=== PATIENT | male | born 1970 | race Two or more races ===

== ENCOUNTER 2024-11-23 00:49 | Inpatient (IN) | payer OTHER ==
[~2024-11-23] VITALS: Ht 182.9 cm; Wt 81.8 kg
--- NOTE | 2024-11-23 00:59 | ECG ---
[facility] Test Date: 2024-11-23 Test Time: 00:48:04 Pat Name: ALPHONSO BARROS Department: Room: [facility]- Gender: M Choir Singer: QUYEN : 1970 Requested By: EMERGENCY EMERGENCY Order Number: [id number] Reading MD: Crhistopher Torres Measurements Intervals Dickinson Rate: 58 P: 92 MO: 185 QRS: 85 QRSD: 87 T: 63 QT: 430 QTc: 423 Interpretive Statements Sinus rhythm Consider left atrial enlargement RSR' in V1 or V2, probably normal variant Left ventricular hypertrophy Borderline T abnormalities, anterior leads ST elev, probable normal early repol pattern Electronically Signed On 11-25-2024 18:49:46 PDT by Christopher Torers Please click the below link to view image of tracing.
[2024-11-23 01:08] VITALS: PULSE 69; RESP 18; O2SAT 97
[2024-11-23] MEDS: SODIUM CHLORIDE 0.9% 1,000 ML IV ONE ×2 (01:15)
[2024-11-23] MEDS: KETOROLAC TROMETH 30 MG/ML 1ML VIAL IV ONE (01:24)
--- NOTE | 2024-11-23 01:25 | ED.PDOC ---
Altered Mental Status HPI Comments 54-year-old male who came to ER via EMS for altered level of consciousness. Per patient's patient went to bed around 11:00 p.m.. He was feeling at his baseline prior to that. Before bed he took Benadryl, tramadol and Seroquel. Just prior to arrival Patient then collapsed at the bathroom floor and started h yperventilating, and became short of breath with nausea and vomiting. She reports patient having seizure-like activity for a proximally 3-4 minutes. He then became unresponsive to verbal stimuli as paramedics were called He was given 5 mg of Narcan by EMS. . Noted to be hypotensive on scene SBP 80 with a blood sugar of 92. REVIEW OF SYSTEMS: General: No fever, no chills, or fatigue HEENT: No sore throat, no earache, no congestion, no neck pain. Cardiac: No chest pain. No palpitations. Lungs: No shortness of breath, no cough. GI: No nausea, no vomiting, no diarrhea, no constipation, no abdominal pain : No dysuria, frequency, or urgency. No hematuria. Musculoskeletal: No joint pain , no joint swelling, no extremity edema. Skin: No rash, no itching. Neuro: No headache, no dizziness, no weakness (+) altered mental status EXAM: General: Awake, lethargic. No acute distress. Skin: Skin in warm, dry and intact. Appropriate color for ethnicity. HEENT: The head is normocephalic and atraumatic. Conjunctivae are clear without exudates or hemorrhage. Sclera is non-icteric. EOM are intact. No signs of nystagmus. Eyelids are normal in appearance without swelling or lesions. Oral mucosa is pink and moist Neck: The neck is supple with normal range of motion. No JVD. Cardiac: Heart rate and rhythm are normal. No murmurs, gallops, or rubs are auscultated. Respiratory: No signs of respiratory distress. Lung sounds are clear in all lobes bilaterally without rales, rhonchi, or wheezes. Abdominal: Abdomen is soft, non-tender without distention. Bowel sounds are present and normoactive in all four quadrants. Extremities: Upper and lower extremities are atraumatic in appearance without deformity or edema. Neurological: The patient is awake, oriented to person, place, and time with normal speech. Speech is clear. There is no facial asymmetry. No upper or lower extremity drift. 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 Allergies: Coded Allergies: Sulfa Antibiotics (Verified Allergy, Unknown, 11/23/24) Information Source: Emergency Med Personnel, Spouse Mode of Arrival: EMS Severity: Unable to Care for Self, Unresponsive Timing: Hours Duration: Since onset Quality: Decreased Alertness, Change in Behavior, Confusion Past Medical History PAST MEDICAL HISTORY: High Lipids, HTN Surgical History: Pt Confused Family History Family History: Pt Confused Social History Smoker: Pt Confused Alcohol: Pt Confused Drugs: Pt Confused Lives In: Home EKG EKG : Pulse Rate (adult): 58 Cardiac Rhythm: NSR Hypertrophy: LAE, LVH Comments No STEMI Was a procedure done? Was a procedure done?: No Differential Diagnosis (ALOC) Differential Diagnosis: Dehydration, Hypoglycemia, Encephalopathy, Seizure, CVA, Drug Overdose, Other (Differential diagnosis considered includes but not limited to intracranial hemorrhage, stroke, head injury, seizure, metabolic disturbance, electrolyte imbalance, infection, substance intoxication, psy chiatric cause, other systemic illness, other) X-Ray, Labs, Meds, VS Vital Signs Date Time Temp Pulse Resp B/P (MAP) Pulse Ox O2 Delivery O2 Flow Rate FiO2 11/23/24 01:26 58 11/23/24 01:08 69 18 97 Nasal Cannula* 2 28 11/23/24 01:08 98.1 64 18 102/78 (86) 97 98.1 11/23/24 00:51 56 11/23/24 00:49 98.3 57 14 100/64 95 98.3 Lab Test 11/23/24 02:01 11/23/24 01:30 Range/Units Urine Color Yellow Yellow Urine Clarity Clear Clear Urine pH 5.5 5.0-9.0 Urine Specific [place] 1.020 1.001-1.035 Urine Protein Negative Negative Urine Ketones Negative Negative Urine Blood Negative Negative /uL Urine Nitrite Negative Negative Urine Bilirubin Negative Negative Urine Urobilinogen Normal Negative mg/dL Urine Leukocyte Esterase Negative Negative /uL Urine RBC 3 0 - 3 /hpf Urine Microscopic WBC 2 0-3 /HPF Urine Squamous Epithelial Cells Few <5 /hpf Urine Bacteria None seen None Seen /hpf Urine Mucus Few None Seen Urine Glucose Normal Normal mg/dL Urine Opiates Screen Pending Urine Fentanyl Screen Pending Urine Barbiturates Screen Pending Urine Phencyclidine Screen Pending Urine Amphetamines Screen Pending Urine Benzodiazepines Screen Pending Urine Cocaine Screen Pending Urine Cannabinoids Screen Pending White Blood Count 5.6 4.4-10.8 10^3/uL Red Blood Count 4.44 L 4.5-5.90 10^6/uL Hemoglobin 14.2 13.5-17.5 g/dL Hematocrit 40.9 L 41.0-53.0 % Mean Corpuscular Volume 92.2 80.0-100.0 fL Mean Corpuscular Hemoglobin 32.1 H 28.0-32.0 pg Mean Corpuscular Hemoglobin Concent 34.9 32.0-36.0 g/dL Red Cell Distribution Width 13.9 11.8-14.3 % Platelet Count 172 140-450 10^3/uL Mean Platelet Volume 8.3 6.9-10.8 fL Neutrophils (%) (Auto) 55.6 37.0-80.0 % Lymphocytes (%) (Auto) 31.4 10.0-50.0 % Monocytes (%) (Auto) 8.6 0.0-12.0 % Eosinophils (%) (Auto) 3.5 0.0-7.0 % Basophils (%) (Auto) 0.9 0.0-2.0 % Neutrophils # (Auto) 3.1 1.6-8.6 10 ^3/uL Lymphocytes # (Auto) 1.8 0.4-5.4 10 ^3/uL Monocytes # (Auto) 0.5 0-1.3 10 ^3/uL Eosinophils # (Auto) 0.2 0-0.8 10 ^3/uL Basophils # (Auto) 0.1 0-0.2 10 ^3/uL Nucleated Red Blood Cells 0.1 % Sodium Level 143 136-145 mmol/L Potassium Level 3.4 L 3.5-5.1 mmol/L Chloride Level 109 H 98-107 mmol/L Carbon Dioxide Level 26 20-31 mmol/L Anion Gap 8 5-15 Blood Urea Nitrogen 10 9-23 mg/dL Creatinine 1.17 0.700-1.30 mg/dL Glomerular Filtration Rate Calc 75 >90 mL/min BUN/Creatinine Ratio 8.5 L 10.0-20.0 Serum Glucose 83 74-106 mg/dL Lactic Acid Level Pending Calcium Level 8.6 L 8.7-10.4 mg/dL Magnesium Level 2.1 1.6-2.6 mg/dL Total Bilirubin 0.5 0.2-1.0 mg/dL Aspartate Amino Transferase (AST) 18 13-40 U/L Alanine Aminotransferase (ALT) 14 7-40 U/L Alkaline Phosphatase 57 46-116 U/L Troponin I High Sensitivity < 3 L </=54 ng/L B-Type Natriuretic Peptide 2.27 0-100 pg/mL Total Protein 6.9 5.7-8.2 g/dL Albumin 4.0 3.2-4.8 g/dL Lipase Pending Thyroid Stimulating Hormone (TSH) 4.78 0.55-4.78 uIU/mL Plasma/Serum Blood Alcohol < 3.0 <10 mg/dL Current Medications Medications (Trade) Dose Ordered Sig/Dilcia Route Start Time Stop Time Status Last Admin Sodium Chloride 1,000 ml @ 1,000 mls/hr Q1H ONCE IV 11/23/24 01:15 11/23/24 02:14 DC 11/23/24 01:15 Ketorolac Tromethamine (Toradol Injection) 15 mg ONCE ONCE IV 11/23/24 01:15 11/23/24 01:16 DC 11/23/24 01:24 CHEST RADIOGRAPH Indication: AMS Technique: Single frontal view of the chest was obtained COMPARISON: None FINDINGS: Lines and Tubes: None Lungs: Clear Pleura: No effusion. No pneumothorax. Cardiomediastinal contours: Cardiomegaly. Bones: Unremarkable IMPRESSION: 1. Cardiomegaly with clear lungs. Time of 1ST Reevaluation: 01:18 Reevaluation 1ST: Unchanged Patient Education/Counseling: Need For Follow Up Family Education/Counseling: Need For Follow Up SEPSIS Sepsis Screen Date sepsis recognized/suspect: Nov 23, 2024 Time Sepsis recognized/suspect: 0115 Recent Procedure: No On Antibiotic Therapy: No Respiratory Rate >20: No Heart Rate >90: No Temp<36 C (96.8 F) or >38.3 C: No SBP <90 or MAP <65 mmHG: No New Acute Mental Status Change: No Is the patient on CPAP, BIPAP,: No Physician Orders Blood Alcohol (11/23/24 01:04) Lactic Acid W/ Reflex Order (11/23/24 01:04) Drug Screen (11/23/24 01:04) Comprehensive Metabolic Panel (11/23/24 01:04) Lipase (11/23/24 01:04) Magnesium (11/23/24 01:04) Covid19 Antigen Luzmaria (11/23/24 ) Rapid Influenza A&B (11/23/24 01:04) Thyroid Stimulating Hormone (11/23/24 01:04) Chest Xray 1 View (11/23/24 01:04) Blood Culture (11/23/24 01:04) Saline Lock (11/23/24 01:04) Straight Cath. (11/23/24 ) Head Without Contrast (11/23/24 01:04) Sodium Chloride 0.9% (11/23/24 01:15) Vital Signs Date Time Temp Pulse Resp B/P (MAP) Pulse Ox O2 Delivery O2 Flow Rate FiO2 11/23/24 01:26 58 11/23/24 01:08 69 18 97 Nasal Cannula* 2 28 11/23/24 01:08 98.1 64 18 102/78 (86) 97 98.1 11/23/24 00:51 56 11/23/24 00:49 98.3 57 14 100/64 95 98.3 Laboratory Tests Test 11/23/24 01:30 Lactic Acid Level Pending White Blood Count 5.6 10^3/uL (4.4-10.8) Medications Medications Dose Ordered Sig/Dilcia Route Start Time Stop Time Status Last Admin Dose Admin Ketorolac Tromethamine 15 mg ONCE ONCE IV 11/23/24 01:15 11/23/24 01:16 DC 11/23/24 01:24 Sodium Chloride 1,000 ml @ 1,000 mls/hr Q1H ONCE IV 11/23/24 01:15 11/23/24 02:14 DC 11/23/24 01:15 Departure 1 Departure Time of Disposition: :27 Impression: Primary Impression: Altered mental status Additional Impressions: Seizure-like activity Hypokalemia Disposition: ADMITTED INPATIENT Condition: Stable Comments Patient admitted to hospitalist service for further treatment, evaluation and monitoring. Extensive evaluation was performed in attempt to identify or rule out: (See differential diagnosis section) The following tests were ordered, and results were reviewed by me and discussed with patient: (See diagnostic results section) The following test were independently interpreted by me: EKG I reviewed and agreed with the following test results read by other providers: Chest x-ray Additional information was gathered from interviewing the following independent historians: EMS personnel, patient's and family members at bedside. Decision regarding hospitalization or escalation of hospital level of care: Risk and benefits of admission for further treatment of patient's condition was considered. Due to patient's current clinical condition, high risk of decline and poor outcome if discharged and need for further inpatient management and monitoring, patient will be admitted to the hospital. Discussed with patient. Critical Care Note Critical Care Time?: No Stability Stability form required: No Heart Score Heart Score: Heart Score Response (Comments) Value History N/A 0 EKG N/A 0 Age N/A 0 Risk Factors N/A 0 Troponin N/A 0 Total 0 I personally scribed for KESHIA HARRIS MD ([email or web address]) on 11/23/24 at 01:25. Electronically submitted by Richy Carranza ([email or web address]). I personally scribed for KESHIA HARRIS MD ([email or web address]) on 11/23/24 at 01:26. Electronically submitted by Richy Carranza ([email or web address]). I personally scribed for KESHIA HARRIS MD ([email or web address]) on 11/23/24 at 02:17. Electronically submitted by Richy Carranza ([email or web address]). I personally scribed for KESHIA HARRIS MD ([email or web address]) on 11/23/24 at 02:17. Electronically submitted by Richy Carranza ([email or web address]). KESHIA HARRIS MD Nov 23, 2024 01:25
--- NOTE | 2024-11-23 02:02 | DVH ---
CHEST RADIOGRAPH Indication: AMS Technique: Single frontal view of the chest was obtained COMPARISON: None FINDINGS: Lines and Tubes: None Lungs: Clear Pleura: No effusion. No pneumothorax. Cardiomediastinal contours: Cardiomegaly. Bones: Unremarkable IMPRESSION: 1. Cardiomegaly with clear lungs.
[2024-11-23 02:06] LABS: Hematocrit 40.9 % (41.0-53.0); Hemoglobin 14.2 g/dL (13.5-17.5); Mean Corpuscular Hemoglobin 32.1 pg (28.0-32.0); Mean Corpuscular Volume 92.2 fL (80.0-100.0); Nucleated Red Blood Cells % 0.1 %
[2024-11-23 02:12] LABS: Urine Protein, UAD Negative (Negative)
--- NOTE | 2024-11-23 02:14 | DVH ---
EXAM: CT HEAD WITHOUT CONTRAST INDICATION: seizure, Altered level of consciousness TECHNIQUE: CT of the head without intravenous contrast. Radiation Dose : 1. Head: CT Dose: CTDI volume is 64.62 mGy. Dose-length product is 1273.22 mGy*cm The dose indicators for CT are the volume Computed Tomography (CT) Dose Index (CTDIvol) and the Dose Length Product (DLP), and are measured in units of mGy and mGy-cm, respectively. These indicators are not patient dose, but values generated from the CT scanner acquisition factors. The report includes radiation exposure data for exposures received during this examination. COMPARISON: None FINDINGS: There is no evidence of acute intracranial hemorrhage, extra-axial collection, mass effect, midline s hift, herniation or hydrocephalus. The ventricles, sulci and cisterns are age appropriate. The aguero-white differentiation is intact. The visualized paranasal sinuses and mastoid air cells are clear. The surrounding soft tissues and osseous structures are unremarkable. IMPRESSION: 1. No evidence of acute intracranial Radiation optimization: All CT scans at this facility use at least one of these dose optimization aalyiah hniques: automated exposure control mA and/or kV adjustment per patient size (includes targeted exam s where dose is matched to clinical indication) or iterative reconstruction.
[2024-11-23 02:18] LABS: Alanine Aminotransferase 14 U/L (7-40); Albumin 4.0 g/dL (3.2-4.8); Alkaline Phosphatase 57 U/L (46-116); Anion Gap 8 (5-15); BUN/Creatinine Ratio 8.5 (10.0-20.0); Blood Urea Nitrogen 10 mg/dL (9-23); Carbon Dioxide 26 mmol/L (20-31); Glucose 83 mg/dL (74-106); Magnesium 2.1 mg/dL (1.6-2.6); Sodium 143 mmol/L (136-145); Total Protein 6.9 g/dL (5.7-8.2)
[2024-11-23 02:19] LABS: Bilirubin, Total 0.5 mg/dL (0.2-1.0); Calcium 8.6 mg/dL (8.7-10.4); Chloride 109 mmol/L (98-107); Potassium 3.4 mmol/L (3.5-5.1)
[2024-11-23 02:23] LABS: Benzodiazephine Screen, Urine Neg (NEGATIVE)
[2024-11-23 02:24] LABS: Cannabinoid Screen, Urine Pos (NEGATIVE)
[2024-11-23 02:25] LABS: Amphetamine Screen, Urine Neg (NEGATIVE); Barbiturate Scree,Urine Neg (NEGATIVE); Opiate Scree,Urine Neg (NEGATIVE); Phencyclidine Screen, Urine Neg (NEGATIVE)
[2024-11-23 02:26] LABS: Cocaine Screen, Urine Neg (NEGATIVE)
[2024-11-23 02:43] LABS: Lipase 38 U/L (12-53)
[2024-11-23] MEDS: POTASSIUM CHL 20 Meq TABLET PO ONE (02:48)
--- NOTE | 2024-11-23 07:25 | DVHHP2 ---
History of Present Illness Reason for Visit: ALOC History of Present Illness Adi Zavala is a 54-year-old male with past medical history of hypertension and hyper lipidemia who presents to the ED after being found altered by his at home in bed last night around 11:00 p.m.. Per reports patient had taken Benadryl, tramadol, and Seroquel at home. Per reports patient had collapsed in the bathroom floor and started hyperventilating then became short of breath nausea and vomiting. also reported that the patient was having seizure- like activity for 3-4 minutes then became unresponsive to verbal stimuli. On scene patient was given 5 mg of Narcan by EMS and was also noted to be hypotensive with systolics at 80. Ivet at the bedside. She reports that her was home with her lying in bed when the incident happened. She reports that her got up told her that he was not feeling good went to the restroom tried to splash water on his face but before that happened he fell to the ground and denies loss of consciousness. She reports that this occurred around 1:00 a.m. She stated when he fell he fell in his right side. She also reported that while she was calling EMS after they showed up the patient had vomited food contents yellowish in color. 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 Patient reports that he takes a combination of tramadol for chronic back pain, Seroquel, and [id number] Benadryl at the same time. He also endorses using marijuana. He states that he was also diagnosed with degenerative disc disease. Patient denies any recent travels, recent sick contacts, recent ingestion of spoiled food, chest pain, shortness of breath, fever, chills, lightheadedness, weakness, dizziness, abdominal pain, nausea, vomiting, diarrhea, or urinary symptoms. Patient states that he does not want to stay in the hospital and requests to leave against medical advice. Discussed risks and benefits with the patient and his and still wants to leave AMA. Cardiovascular: HTN, hyperipidemia Past Medical History Chronic back pain Degenerative disc disease Past Surgical History: None Family History: Other (Both parents ) Smoke: No ALCOHOL: none Drugs: Marijuana Lives: with Family Domestic Violence: Neg Review of Systems Neurological: Other (ALOC) Allergies: Coded Allergies: Sulfa Antibiotics (Verified Allergy, Unknown, 11/23/24) Exam Vital Signs Vital Signs Date Time Temp Pulse Resp B/P (MAP) Pulse Ox O2 Delivery O2 Flow Rate FiO2 11/23/24 05:18 95/55 (68) 11/23/24 04:59 98.1 72 18 97 98.1 11/23/24 01:08 Nasal Cannula* 2 28 General Appearance: Alert, Oriented X3, Cooperative, No acute distress HEENT: Atraumatic, PERRLA, EOMI, Mucous membr. moist/pink Respiratory: Clear to auscultation, Normal air movement Cardiovascular: Normal S1, Normal S2, No murmurs Abdominal: Normal bowel sounds, Soft Extremities: Normal pulses, No tenderness/swelling Skin: No significant lesion Neuro: Normal speech, Strength at 5/5 X4 ext, Normal tone, Sensation intact Psych/Mental Status: Mental status NL, Mood NL Labs/Xrays Labs Test 11/23/24 02:01 11/23/24 01:30 Range/Units Urine Color Yellow Yellow Urine Clarity Clear Clear Urine pH 5.5 5.0-9.0 Urine Specific [place] 1.020 1.001-1.035 Urine Protein Negative Negative Urine Ketones Negative Negative Urine Blood Negative Negative /uL Urine Nitrite Negative Negative Urine Bilirubin Negative Negative Urine Urobilinogen Normal Negative mg/dL Urine Leukocyte Esterase Negative Negative /uL Urine RBC 3 0 - 3 /hpf Urine Microscopic WBC 2 0-3 /HPF Urine Squamous Epithelial Cells Few <5 /hpf Urine Bacteria None seen None Seen /hpf Urine Mucus Few None Seen Urine Glucose Normal Normal mg/dL Urine Opiates Screen Neg NEGATIVE Urine Fentanyl Screen Neg NEGATIVE Urine Barbiturates Screen Neg NEGATIVE Urine Phencyclidine Screen Neg NEGATIVE Urine Amphetamines Screen Neg NEGATIVE Urine Benzodiazepines Screen Neg NEGATIVE Urine Cocaine Screen Neg NEGATIVE Urine Cannabinoids Screen Pos NEGATIVE White Blood Count 5.6 4.4-10.8 10^3/uL Red Blood Count 4.44 L 4.5-5.90 10^6/uL Hemoglobin 14.2 13.5-17.5 g/dL Hematocrit 40.9 L 41.0-53.0 % Mean Corpuscular Volume 92.2 80.0-100.0 fL Mean Corpuscular Hemoglobin 32.1 H 28.0-32.0 pg Mean Corpuscular Hemoglobin Concent 34.9 32.0-36.0 g/dL Red Cell Distribution Width 13.9 11.8-14.3 % Platelet Count 172 140-450 10^3/uL Mean Platelet Volume 8.3 6.9-10.8 fL Neutrophils (%) (Auto) 55.6 37.0-80.0 % Lymphocytes (%) (Auto) 31.4 10.0-50.0 % Monocytes (%) (Auto) 8.6 0.0-12.0 % Eosinophils (%) (Auto) 3.5 0.0-7.0 % Basophils (%) (Auto) 0.9 0.0-2.0 % Neutrophils # (Auto) 3.1 1.6-8.6 10 ^3/uL Lymphocytes # (Auto) 1.8 0.4-5.4 10 ^3/uL Monocytes # (Auto) 0.5 0-1.3 10 ^3/uL Eosinophils # (Auto) 0.2 0-0.8 10 ^3/uL Basophils # (Auto) 0.1 0-0.2 10 ^3/uL Nucleated Red Blood Cells 0.1 % Sodium Level 143 136-145 mmol/L Potassium Level 3.4 L 3.5-5.1 mmol/L Chloride Level 109 H 98-107 mmol/L Carbon Dioxide Level 26 20-31 mmol/L Anion Gap 8 5-15 Blood Urea Nitrogen 10 9-23 mg/dL Creatinine 1.17 0.700-1.30 mg/dL Glomerular Filtration Rate Calc 75 >90 mL/min BUN/Creatinine Ratio 8.5 L 10.0-20.0 Serum Glucose 83 74-106 mg/dL Lactic Acid Level 1.8 0.4-2.0 mmol/L Calcium Level 8.6 L 8.7-10.4 mg/dL Magnesium Level 2.1 1.6-2.6 mg/dL Total Bilirubin 0.5 0.2-1.0 mg/dL Aspartate Amino Transferase (AST) 18 13-40 U/L Alanine Aminotransferase (ALT) 14 7-40 U/L Alkaline Phosphatase 57 46-116 U/L Troponin I High Sensitivity < 3 L </=54 ng/L B-Type Natriuretic Peptide 2.27 0-100 pg/mL Total Protein 6.9 5.7-8.2 g/dL Albumin 4.0 3.2-4.8 g/dL Lipase 38 12-53 U/L Thyroid Stimulating Hormone (TSH) 4.78 0.55-4.78 uIU/mL Plasma/Serum Blood Alcohol < 3.0 <10 mg/dL EXAM: CT HEAD WITHOUT CONTRAST INDICATION: seizure, Altered level of consciousness TECHNIQUE: CT of the head without intravenous contrast. Radiation Dose : 1. Head: CT Dose: CTDI volume is 64.62 mGy. Dose-length product is 1273.22 mGy*cm The dose indicators for CT are the volume Computed Tomography (CT) Dose Index (CTDIvol) and the Dose Length Product (DLP), and are measured in units of mGy and mGy-cm, respectively. These indicators are not patient dose, but values generated from the CT scanner acquisition factors. The report includes radiation exposure data for exposures received during this examination. COMPARISON: None FINDINGS: There is no evidence of acute intracranial hemorrhage, extra-axial collection, mass effect, midline shift, herniation or hydrocephalus. The ventricles, sulci and cisterns are age appropriate. The aguero-white differentiation is intact. The visualized paranasal sinuses and mastoid air cells are clear. The surrounding soft tissues and osseous structures are unremarkable. IMPRESSION: 1. No evidence of acute intracranial CHEST RADIOGRAPH Indication: AMS Technique: Single frontal view of the chest was obtained COMPARISON: None FINDINGS: Lines and Tubes: None Lungs: Clear Pleura: No effusion. No pneumothorax. Cardiomediastinal contours: Cardiomegaly. Bones: Unremarkable IMPRESSION: 1. Cardiomegaly with clear lungs. SEPSIS Sepsis Screen Date sepsis recognized/suspect: Nov 23, 2024 Time Sepsis recognized/suspect: 0115 Recent Procedure: No On Antibiotic Therapy: No Respiratory Rate >20: No Heart Rate >90: No Temp<36 C (96.8 F) or >38.3 C: No SBP <90 or MAP <65 mmHG: No New Acute Mental Status Change: No Is the patient on CPAP, BIPAP,: No Physician Orders Covid19 Antigen Luzmaria (11/23/24 ) Rapid Influenza A&B (11/23/24 01:04) Chest Xray 1 View (11/23/24 01:04) Blood Culture (11/23/24 01:04) Saline Lock (11/23/24 01:04) Straight Cath. (11/23/24 ) Head Without Contrast (11/23/24 01:04) Sodium Chloride 0.9% (11/23/24 01:15) Vital Signs Date Time Temp Pulse Resp B/P (MAP) Pulse Ox O2 Delivery O2 Flow Rate FiO2 11/23/24 05:18 95/55 (68) 11/23/24 04:59 98.1 72 18 107/68 (81) 97 98.1 11/23/24 04:00 61 11/23/24 01:26 58 11/23/24 01:08 69 18 97 Nasal Cannula* 2 28 11/23/24 01:08 98.1 64 18 102/78 (86) 97 98.1 11/23/24 00:51 56 11/23/24 00:49 98.3 57 14 100/64 95 98.3 Laboratory Tests Test 11/23/24 01:30 Lactic Acid Level 1.8 mmol/L (0.4-2.0) White Blood Count 5.6 10^3/uL (4.4-10.8) Medications Medications Dose Ordered Sig/Dilcia Route Start Time Stop Time Status Last Admin Dose Admin Ketorolac Tromethamine 15 mg ONCE ONCE IV 11/23/24 01:15 11/23/24 01:16 DC 11/23/24 01:24 15 MG Potassium Chloride 40 meq ONCE ONCE PO 11/23/24 02:30 11/23/24 02:31 DC 11/23/24 02:48 40 MEQ Sodium Chloride 1,000 ml @ 130 mls/hr Q7H42M ONCE IV 11/23/24 01:15 11/23/24 08:56 11/23/24 01:15 130 MLS/HR Sodium Chloride 1,000 ml @ 1,000 mls/hr Q1H ONCE IV 11/23/24 01:15 11/23/24 02:14 DC 11/23/24 01:15 1,000 MLS/HR Assessment/Plan Assessment/Plan Assessment Acute encephalopathy ? Seizure Degenerative disc disease reported by patient Chronic back pain reported by patient Positive marijuana use Cardiomegaly Sinus bradycardia Acute hypoxic respiratory failure on oxygen Hypokalemia History of hyperlipidemia History of hypertension Plan Admit to med surge Replete lytes Pain management NS 2 L given in ED CT head noted Chest x-ray noted Blood cultures UA TSH Troponin noted Flu test COVID test Mag level Lipase UDS Lactic level Blood alcohol BNP EKG Ammonia level Diet RN to reconciled home medications DVT prophylaxis-SCDs PUD prophylaxis-not indicated no history of GERD or GI bleed Discussed plan of care with patient, patient's and nurse Neuro consult Counseled patient on cessation of marijuana use [id number] Behavior change smoking greater than 10 minutes about use of other options also gave option of nicotine patch [id number] Preventive counseling healthy eating habits, physical activity, and regular checkups Plan discussed with: Patient, Spouse Date of Service: Nov 23, 2024 Billing Provider: ELIZABETH MCKEON Common Visit Codes: [id number] INP/OBS CARE(LOW) Secondary Visit Codes: [id number] COUNSELING IND, [id number] CHNG SMOKING >10MIN ELIZABETH MCKEON Nov 23, 2024 07:25
[2024-11-23] MEDS ORDERED: ACETAMINOPHEN 325 MG TAB PO PRN (07:30)
[2024-11-23] MEDS ORDERED: ONDANSETRON HCL 4 MG/2 ML VIAL IV PRN (07:30)
[2024-11-23 07:41] VITALS: PULSE 64; RESP 13; O2SAT 96
[2024-11-23 08:54] VITALS: BP 125/78; PULSE 60; RESP 12; TEMP 98; O2SAT 96
== END 2024-11-23 08:25 | disposition left against medical advice (07) | DRG 52 ==
LOC: EDBD 00:49 → ER 00:49 → OVERFLOW 07:21
DX: G92.8 Other toxic encephalopathy (principal); J96.01 Acute respiratory failure with hypoxia; R56.9 Unspecified convulsions; F12.90 Cannabis use, unspecified, uncomplicated; E78.5 Hyperlipidemia, unspecified; E87.6 Hypokalemia; Z53.29 Procedure and treatment not carried out because of patient's decision for other reasons; G89.29 Other chronic pain; Z79.899 Other long term (current) drug therapy
CPT/HCPCS: 36415; 70450; 71045; 80053; 80307; 80320; 81001; 82140; 83605; 83690; 83735; 83880; 84443; 84484; 85025; 87040; 93005; 96361; 96374; G0378; J1885